=== PATIENT | female | born 1980 | race Caucasian/White ===

== ENCOUNTER 2018-12-19 08:40 | Inpatient (IN) | payer MEDICAID ==
[2018-12-19] MEDS: MISOPROSTOL 50 MCG CAPSULE PO ×2 (05:23→13:54)
[2018-12-19 09:57] LABS: ADD MAN DIFF? NO
[2018-12-19] MEDS ORDERED: OXYTOCIN 30 UNITS/LR 500 ML IV (10:00)
[2018-12-19] MEDS ORDERED: LIDOCAINE 1% (MPF) 30 ML INJ INJ (10:00)
[2018-12-19] MEDS ORDERED: IBUPROFEN 600 MG TAB PO (10:00)
[2018-12-19] MEDS ORDERED: CARBOPROST 250 MCG INJ IM (10:00)
[2018-12-19 10:01] LABS: ABNORMAL IP MESSAGE 1; BASOPHILS % 0.5 % (0.0-2.0); EOSINOPHILS # 0.1 10^3/ul (0.0-0.5); EOSINOPHILS % 0.8 % (0.0-7.0); HEMATOCRIT 35.9 % (37.0-47.0); HEMOGLOBIN 12.1 g/dl (12.0-16.0); LYMPHOCYTES # 2.3 10^3/ul (0.8-2.9); LYMPHOCYTES % 28.6 % (15.0-51.0); MEAN CORPUSCULAR HEMOGLOBIN 29.7 pg (29.0-33.0); MEAN CORPUSCULAR HGB CONC 33.7 g/dl (32.0-37.0); MEAN PLATELET VOLUME 13.2 fl (7.4-10.4); MONOCYTE # 0.5 10^3/ul (0.3-0.9); NEUTROPHILS % 63.3 % (39.0-77.0); PLATELET COUNT 200 10^3/UL (140-415); RED BLOOD COUNT 4.08 10^6/ul (4.20-5.40); RED CELL DISTRIBUTION WIDTH 13.9 % (11.5-14.5)
[2018-12-19 10:04] LABS: INR 0.76; PROTIME 10.8 Sec (11.9-14.9); PT RATIO 0.8
[2018-12-19 10:05] LABS: PARTIAL THROMBOPLASTIN TIME 25.4 Sec (23.0-35.0)
[2018-12-19 10:06] LABS: POSITIVE DIFF @See below
[2018-12-19] MEDS: LACTATED RINGER'S 1,000 ML IV ×3 (10:29→23:11)
[2018-12-19 10:37] LABS: HEPATITIS B SURFACE ANTIGEN NEGATIVE (NEGATIVE)
[2018-12-19 12:55] LABS: ALANINE AMINOTRANSFERASE 51 IU/L (13-69); ALBUMIN 3.2 g/dl (3.3-4.9); ALBUMIN/GLOBULIN RATIO 0.96; ALKALINE PHOSPHATASE 281 IU/L (42-121); AMYLASE 84 U/L (11-123); ANION GAP 9 (5-13); ASPARTATE AMINO TRANSFERASE 43 IU/L (15-46); BILIRUBIN,INDIRECT 0.3 mg/dl (0-1.1); BILIRUBIN,TOTAL 0.3 mg/dl (0.2-1.3); BLOOD UREA NITROGEN 13 mg/dl (7-20); CALCIUM 9.3 mg/dl (8.4-10.2); CARBON DIOXIDE 24 mmol/L (21-31); CHLORIDE 103 mmol/L (97-110); CREATININE 0.66 mg/dl (0.44-1.00); Estimated GFR > 60 mL/min (>60); GLUCOSE 72 mg/dl (70-220); LIPASE 61 U/L (23-300); POTASSIUM 3.7 mmol/L (3.5-5.1); SODIUM 136 mmol/L (135-144); TOTAL PROTEIN 6.5 g/dl (6.1-8.1)
[2018-12-19] MEDS: URSODIOL 300 MG CAP PO ×2 (13:54→21:00)
[2018-12-19 15:05] LABS: RAPID PLASMA REAGIN NONREACTIVE (NR)
[2018-12-20] MEDS: ACETAMINOPHEN 325 MG TAB PO (04:00)
[2018-12-20] MEDS: LACTATED RINGER'S 1,000 ML IV ×2 (04:16→11:58)
[2018-12-20] MEDS: MISOPROSTOL 50 MCG CAPSULE PO ×3 (05:00→05:23)
[2018-12-20] MEDS ORDERED: OXYTOCIN 30 UNITS/LR 500 ML IV ×2 (06:00→14:30)
[2018-12-20] MEDS: URSODIOL 300 MG CAP PO ×2 (09:16→21:22)
[2018-12-20] MEDS: BUTORPHANOL 2 MG INJ IV (09:26)
[2018-12-20] MEDS: OXYTOCIN 30 UNITS/LR 500 ML IV ×3 (14:03→18:13)
[2018-12-20] MEDS: METHYLERGONOVINE 0.2 MG INJ IM (14:03)
[2018-12-20] MEDS: MISOPROSTOL 200 MCG TAB PR (14:05)
[2018-12-20] MEDS ORDERED: CARBOPROST 250 MCG INJ IM (14:30)
[2018-12-20] MEDS ORDERED: MISOPROSTOL 200 MCG TAB PR (14:30)
[2018-12-20] MEDS ORDERED: METHYLERGONOVINE 0.2 MG INJ IM (14:30)
[2018-12-20] MEDS ORDERED: ACETAMINOPHEN 325 MG TAB PO (14:30)
[2018-12-20] MEDS ORDERED: ONDANSETRON 4 MG INJ IV (14:30)
[2018-12-20] MEDS ORDERED: OXYCODONE/ASPIRIN (4.88/325) TAB PO (14:30)
[2018-12-20] MEDS ORDERED: NACL 0.9% 3 ML SYG IV (14:30)
[2018-12-20] MEDS: IBUPROFEN 600 MG TAB PO (18:13)
[2018-12-20] MEDS: BENZOCAINE 20% 56 ML SPRAY TOP (18:14)
[2018-12-20] MEDS: WITCH HAZEL/GLYCERIN PAD PR (18:14)
[2018-12-20] MEDS: SENNA/DOCUSATE NA (8.6MG/50MG) TAB PO (21:22)
[2018-12-21] MEDS: IBUPROFEN 600 MG TAB PO ×4 (00:48→14:49)
[2018-12-21] MEDS: OXYCODONE/ASPIRIN (4.88/325) TAB PO ×2 (07:46→20:37)
[2018-12-21 08:25] LABS: HEMOGLOBIN 10.4 g/dl (12.0-16.0)
[2018-12-21] MEDS: URSODIOL 300 MG CAP PO ×3 (10:09→20:36)
[2018-12-21] MEDS: SENNA/DOCUSATE NA (8.6MG/50MG) TAB PO ×2 (10:09→20:36)
[2018-12-22] MEDS: IBUPROFEN 600 MG TAB PO ×3 (00:01→11:44)
[2018-12-22] MEDS: URSODIOL 300 MG CAP PO (09:23)
[2018-12-22] MEDS: SENNA/DOCUSATE NA (8.6MG/50MG) TAB PO (09:23)
[2018-12-22] MEDS: DIPHTH/TET/ACEL PERTUSS (ADULT) 0.5 ML VIAL IM* (10:38)
== END 2018-12-22 14:36 | disposition home or self-care (01) | DRG 805 ==
LOC: PP1 12-20 16:20 → L-D 08:40
PROVIDERS: Obstetrics & Gynecology
PROC: 10E0XZZ Delivery of Products of Conception, External Approach (ICD-10-PCS; principal; 2018-12-19 08:00)
PROC: 3E033VJ Introduction of Other Hormone into Peripheral Vein, Percutaneous Approach (ICD-10-PCS; 2018-12-19 08:00)
DX: O26.62 Liver and biliary tract disorders in childbirth (principal); K83.1 Obstruction of bile duct; Z37.0 Single live birth; Z3A.37 37 weeks gestation of pregnancy
CPT/HCPCS: 76815; 80053; 82150; 83690; 85014; 85018; 85025; 85610; 85730; 86592; 86850; 86900; 86901; 87340; 90715; 99464